=== PATIENT | male | born 1995 | race Two or more races ===

== ENCOUNTER 2016-09-25 05:31 | Inpatient (IN) | payer OTHER ==
[~2016-09-25 05:31] MED LIST: CEFAZOLIN 2 GM/D5W RTU 2 GM/50 ML RTUPB IV PRN; LACTATED RINGERS 1000 ML IV PRN; LIDOCAINE 0.5% INJ-PF (5 MG/ML) 50 ML SDV SUBCUT PRN
[2016-09-25] MEDS ORDERED: MINERAL OIL (STERILE) 10 ML VIAL ONE (05:34)
[2016-09-25] MEDS ORDERED: BUPIVACAINE HCL 0.5%-EPI 1:200000 INJ/PF 30 ML VIAL ONE (05:35)
[2016-09-25] MEDS ORDERED: FENTANYL CITRATE INJ/PF 250 MCG/5 ML AMPULE ONE (06:35)
[2016-09-25] MEDS ORDERED: FENTANYL CITRATE INJ/PF 100 MCG/2 ML AMPUL ONE ×2 (06:35→11:51)
[2016-09-25] MEDS ORDERED: HYDROMORPHONE HCL INJ/PF 2 MG/ML AMPULE ONE ×2 (06:36→15:59)
[2016-09-25] MEDS ORDERED: PROPOFOL INJ 200 MG/20 ML VIAL IV ONE ×2 (06:36→12:29)
[2016-09-25] MEDS ORDERED: ACETAMINOPHEN 100 ML IV ONE (06:36)
[2016-09-25] MEDS ORDERED: MIDAZOLAM 2 MG/2 ML INJ ONE (06:36)
[2016-09-25] MEDS ORDERED: METHYLENE BLUE/PF INJ 100 MG/10 ML SDV ONE (07:27)
--- NOTE | 2016-09-25 13:41 | Brief Operative Note ---
BRIEF OPERATIVE REPORT DATE OF SURGERY: 09/25/16 TIME OF SURGERY: 07:30 PREOPERATIVE DIAGNOSIS: right UPJ obstruction POSTOPERATIVE DIAGNOSIS: Right crossing vessel UPJ obstruction SURGEON: BENY PIRES 1ST CARD LACER JACQUARD: CONNIE KONG FINDINGS: see below COMPLICATIONS: none ESTIMATED BLOOD LOSS: 25 TISSUE REMOVED OR ALTERED: Right renal pelvis TECHNICAL PROCEDURE: 1) Cystoscopy with right [id number] JJ ureteral stent placment. 2) Right retrograde pyelography/fluoroscopy with interpretation. 3) Right robotic dismembered pyeloplasty
[2016-09-25] MEDS ORDERED: MORPHINE SULFATE 10 MG/ML INJ IV PRN (13:55)
[2016-09-25] MEDS ORDERED: DIPHENHYDRAMINE HCL 50 MG/ML VIAL IV PRN (13:55)
[2016-09-25] MEDS ORDERED: MEPERIDINE HCL/PF INJ 25 MG/1 ML DISP.SYRIN IV PRN (13:55)
[2016-09-25] MEDS ORDERED: PROMETHAZINE HCL INJ 25 MG/1 ML VIAL IV PRN ×2 (13:55)
[2016-09-25] MEDS ORDERED: FENTANYL CITRATE INJ/PF 100 MCG/2 ML AMPUL IV PRN ×3 (13:55)
[2016-09-25] MEDS ORDERED: NEOSTIGMINE METHYLSULFATE 10 MG/10 ML VIAL ONE (14:19)
[2016-09-25] MEDS ORDERED: DEXAMETHASONE SOD PHOSPHATE INJ 4 MG/1 ML VIAL ONE (14:19)
[2016-09-25] MEDS ORDERED: LIDOCAINE 2% INJ-PF (20 MG/ML) 10 ML AMPUL ONE (14:19)
[2016-09-25] MEDS ORDERED: ROCURONIUM BROMIDE INJ 50 MG/5 ML VIAL IV ONE (14:19)
[2016-09-25] MEDS ORDERED: GLYCOPYRROLATE INJ 0.4 MG/2 ML VIAL ONE (14:19)
[2016-09-25] MEDS ORDERED: ONDANSETRON HCL INJ/PF 4 MG/2 ML SDV ONE (14:19)
--- NOTE | 2016-09-25 14:59 | OPERATIVE REPORT E ---
Operative Report NAME: ANDRES NICOLE : 1995 AGE: 20Y DATE OF SURGERY: 09/25/2016 ROOM: OR PREOPERATIVE DIAGNOSIS: Right ureteropelvic junction obstruction. POSTOPERATIVE DIAGNOSIS: Right crossing vessel ureteropelvic junction obstruction. PROCEDURE PERFORMED: 1. Cystourethroscopy, with placement of right 6-Malagasy x 26 cm double-J ureteral stent. 2. Right retrograde pyelography with interpretation. 3. Fluoroscopy with interpretation. Total fluoroscopy time less than 1 hour. 4. Right dismembered robotic pyeloplasty with a da Kishan Robot. SURGEON: Grady Vee M.D. TRAVEL REGISTERED NURSE NICU: Steven Elliott D.O. ANESTHESIA: General endotracheal. ESTIMATED BLOOD LOSS: 25 mL. INTRAVENOUS FLUID: 2800 mL of Ringer's Lactate. DRAINS, TUBES, AND LINES: 1. Right 6-Malagasy x 26 cm double-J ureteral stent. 2. A 16-Malagasy Cortés catheter to gravity. 3. A #15 Ankit drain to bulb suction. SPECIMENS: Right renal pelvis for pathology. COMPLICATIONS: None. CONDITION: Stable. 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 He had imaging performed, which showed a hydronephrotic right kidney with a prominent right renal pelvis and a crossing vessel UPJ obstruction. His Lasix renal scan revealed equal renal share with a differential function of left kidney being 53.3% function and the right kidney being 46.7% function, but with a significant delay in drainage on the right with a T1 half of 46.8 minutes. We had discussed options for intervention and elected for robotic surgery as performed today. DESCRIPTION OF SURGERY: The patient was identified in the preoperative holding area. The surgery, with all the attendant risks and benefits, were again described in detail to the patient. He confirmed his consent to proceed. He was marked on the right side and was given Ancef 2 grams intravenously. He was brought back to the operating room. Sequential compression devices were placed and these were cycling prior to induction of general endotracheal anesthesia. The patient was then repositioned in the dorsal low lithotomy position, where he was then prepped and draped in the usual sterile fashion and surgical timeout was performed, all were in agreement, and we then started with the cystoscopic portion of the case. We began by placing a 21-Malagasy rigid cystoscope in transurethrally. The urethra was without any abnormality. The prostate was non-obstructing the bladder neck was open. Both ureteral orifices were seen in the normal and orthotopic location. There were no lesions concerning for malignancy. The right ureteral orifice was cannulated with an open-ended catheter and a retrograde pyelogram was performed. This showed a significant S-shaped, kink of the proximal ureter consistent with a crossing vessel UPJ obstruction and a very hydronephrotic renal pelvis. We placed a wire through the open-ended catheter and then placed, under direct visual and fluoroscopic guidance, a 6-Malagasy x 26 cm double-J ureteral stent. This had a good coil, confirmed in the renal pelvis and in the bladder fluoroscopically and visually in the bladder. We then removed the scope and placed a 16-Malagasy Cortés catheter and left it to gravity. At this point, we undraped the patient and repositioned him in the flank position with the right side up. We elevated the kidney rest and broke the bed. He had an axillary roll placed and all pressure points were padded and he was secured with foam tape and 3 points. His left arm was placed in the arm board and his right arm in an airplane arm board. Once he was fully secured in place, we did a test roll of the bed and he was stable. We then shaved the abdomen, prepped and draped in the usual sterile fashion, and then prepared for the second portion of the case. With the patient appropriately positioned in the flank position, we placed the Veress needle in the supraumbilical position and with high flow, began insufflation. Opening pressure was 7 and pressure sunny up to 15. Once this was in place, we measured out our ports. We marked out for our camera port to be periumbilical and we marked our first robotic 8 mm port 1 hand breadth superiorly to the upper portion of the umbilicus and we marked our second robot port 1 hand breadth inferolaterally from the umbilicus in a position that would triangulate towards the position of the renal pelvis. We then marked out a position in the xiphoid for the 5 mm port for a liver retractor and placed an assistant professor of history port, triangulated long term between the camera port and the superior right arm robot port and placed this more medially. Once this was done, we decided to enter with the 12 mm camera in the port position that was marked for our assistant professor of history port, which was going to be a 12 mm port. We instilled our lidocaine and then placed a trocar in without complication. We then brought in the camera and visualized the abdomen, and the abdomen showed no abnormalities. We could see where the insufflation from the Veress needle was in position and there was no injury. We then placed each of the other ports under direct vision. With the ports in place, we then brought in the robot and docked it. With the robot docked, we began by taking down the white line of Toldt laterally and mobilizing the colon medially. We mobilized up to the inferior pole of the kidney and then we began to mobilize the duodenum medially. We then placed a locking grasper in through our 5 mm port in the subxiphoid region and used this to retract the liver superiorly. We then were able to go inferolaterally from the lower pole of the kidney and dissect back to the psoas muscle, where we then encountered the ureter and the gonadal vein. We placed the gonadal vein medially and posteriorly and elevated the ureter and we used this to dissect the ureter right the way cranially up to where we met the lower pole of the kidney. With careful attention to mobilize the duodenum medially, we then were able to carefully dissect the plane in the retroperitoneum to where we saw where the ureter was crossing under the lower pole crossing vessel. The vessel was then identified and elevated and we dissected inferiorly to it to where we had circumferential dissection of the ureter and of the crossing vessel, and then we grabbed the renal pelvis and elevated the renal pelvis and cleared off all the attachments to that. We then took a 3-0 Monocryl suture with a Yoav needle, placed it through the abdominal wall and held the renal pelvis superiorly, which allowed for us to then use both robotic arms to dissect circumferentially around the renal pelvis, proximal ureter, and the crossing vessel. Once we were satisfied that we had a good dissection, we made our pyelotomy with the scissors and opened the renal pelvis just superior to where the vessel crossed in front of it. We divided the renal pelvis and ureter and then transposed the ureter anterior to the crossing vessel. We did note that there was a significant reduction pyeloplasty required, so we did remove some of the redundant renal pelvis and we passed this off as a specimen labeled "renal pelvis" for pathology. We then spatulated the proximal ureter laterally and then we began our repair, running first the posterior wall with 4-0 Vicryl stitches in a running fashion and then we ran the anterior wall with a running 4-0 Vicryl. We did do several interrupted 4-0 monocryl stitches and [id number] stitches to bolster this and once we were done with the anastomosis, we were satisfied that there was a tension-free and leak-free anastomosis, we irrigated and suctioned and were satisfied that the hemostasis was excellent. We did put some FloSeal around the renal pelvis, but prior to doing so, we did decrease the insufflation pressure down to 5 mm of water and were satisfied that there was no other bleeding. Once this was done, we placed the FloSeal and then we placed the drain, which came out through the left robotic 8 mm port, and we laid this laterally to the kidney. At this point, we removed the trocars under direct vision and undocked the robot. We closed the fascia with 2-0 Vicryl with a UR-6 needle and then irrigated each of the port incisions and closed the deep dermal layers with 3-0 Vicryl interrupted stitches and then closed the skin with running 4-0 Monocryl and subcuticular stitch. We then placed a drain stitch and secured the drain in place and placed the Dermabond over each of the incisions. The patient was then awakened from anesthesia and transferred to the PACU in a stable condition. PLAN: Plan is for recovery in the PACU and once he meets criteria for transfer to the [facility], he will be transferred there for further recovery. We will keep the Cortés catheter for 24-48 hours and the drain to come out following that, and I will perform serial imaging in 6 weeks after stent removal. DICTATING PHYSICIAN: Grady Vee MD [id number] PHY#: [id number] ID: [id number] JOB#: [id number] ACCT: [id number] cc:Grady Vee M.D. > [facility] CENTERIvone
[2016-09-25] MEDS ORDERED: OXYCODONE-ACETAMINOPHEN 5-325 MG TABLET PO PRN ×2 (16:31)
[2016-09-25] MEDS ORDERED: HYDROMORPHONE HCL INJ/PF 2 MG/ML AMPULE IV PRN (16:32)
[2016-09-25] MEDS ORDERED: ONDANSETRON HCL INJ/PF 4 MG/2 ML SDV IV PRN (16:33)
[2016-09-25 16:44] VITALS: BP 145/88
== END 2016-09-25 16:45 | DRG 660 ==
LOC: INOR 05:31 → EDSTATUS 07:30
PROVIDERS: ADMIT Urology; ATTEND Urology
PROC: 0T768DZ Dilation of Right Ureter with Intraluminal Device, Via Natural or Artificial Opening Endoscopic (ICD-10-PCS; 2016-09-25)
PROC: BT1DZZZ Fluoroscopy of Right Kidney, Ureter and Bladder (ICD-10-PCS; 2016-09-25)
PROC: 8E0W8CZ Robotic Assisted Procedure of Trunk Region, Via Natural or Artificial Opening Endoscopic (ICD-10-PCS; 2016-09-25)
PROC: 0TQ Urinary System, Repair (ICD-10-PCS; principal; 2016-09-25 07:30)
DX: N13.2 Hydronephrosis with renal and ureteral calculous obstruction (principal); F17.210 Nicotine dependence, cigarettes, uncomplicated
CPT/HCPCS: 36415; 74420; 862; 86850; 86900; 86901; 88305; C1758; C2617; J0131; J0690; J1100; J1170; J2250; J2405; J2704; J3010; J3490; Q9967; Q9968